=== PATIENT | male | born 1990 | race Caucasian/White ===

== ENCOUNTER 2016-07-08 19:26 | Emergency (ER) | payer SELFPAY ==
[~2016-07-08] VITALS: Ht 175.3 cm; Wt 72.5 kg
[~2016-07-08 19:26] MED LIST: CIPR500T4 PO; IBUP-232 PO
[2016-07-08 19:27] VITALS: BP 126/69; PULSE 99; RESP 18; TEMP 98.2; O2SAT 100
[2016-07-08] MEDS ORDERED: LIDOCAINE HCL 1% PF 30 ML VIAL XX ONE (21:00)
[2016-07-08] MEDS ORDERED: metroNIDAZOLE 500 MG TAB PO ONE (21:00)
[2016-07-08] MEDS ORDERED: AZITHROMYCIN PWD FOR SUSP 1 GM PACKET PO ONE (21:00)
--- NOTE | 2016-07-08 21:06 | PD ---
HPI Chief Complaint: Medical Clearance Time Seen by Provider: 21:01 Travel History International Travel<30 days: No Contact w/Intl Traveler<30days: No Traveled to known affect area: No History of Present Illness HPI Patient comes in complaining of exposure to chlamydia. Patient states his ex- girlfriend told him today that she tested positive for chlamydia and they were last together approximately a week ago. Patient states he had a little bit discharge morning when woke up, but denies any other symptoms or discharge since. Denies any dysuria, testicular pain, abdominal pain, fevers, nausea, or vomiting. [facility] Past Medical History ADD: Yes (as a child) Diminished Hearing: No Neurologic: Yes (head injury in 1998) Immunizations Current: Yes Past Surgical History Cholecystectomy: Yes Social History Alcohol Use: Yes (4-5 x week beer) Tobacco Use: No Substance Use: Yes ( occ. 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 SKIN: Warm and dry. HEAD: Atraumatic. Normocephalic. EYES: Pupils equal and round. EOMI. No scleral icterus. No injection or drainage. ENT: No nasal bleeding or discharge. Mucous membranes pink and moist. NECK: Trachea midline. Supple. No nuclear rigidity. RESPIRATORY: No accessory muscle use. No respiratory distress. GASTROINTESTINAL: Abdomen soft, non-tender, nondistended. Hepatic and splenic margins not palpable. No pulsatile mass. MUSCULOSKELETAL: No obvious deformities. No clubbing. No cyanosis. No edema. Full range of motion. NEUROLOGICAL: Awake and alert. No obvious cranial nerve deficits. Motor grossly within normal limits. Normal speech. PSYCHIATRIC: Appropriate mood and affect; insight and judgment normal. Data Data Last Documented VS Vital Signs Date Time Temp Pulse Resp B/P Pulse Ox O2 Delivery O2 Flow Rate FiO2 07/08/16 19:27 98.2 99 18 126/69 100 Orders Gc And Chlamydia Pcr (07/08/16 19:46) Ceftriaxone Inj (Rocephin Inj) (07/08/16 21:00) Lidocaine Pf 1% Inj (Xylocaine-Mpf 1% In (07/08/16 21:00) Azithromycin Powd Pack (Zithromax Powd P (07/08/16 21:00) Metronidazole (Flagyl) (07/08/16 21:00) MDM Medical Decision Making Medical Screen Exam Complete: Yes Emergency Medical Condition: No Differential Diagnosis Gonorrhea, chlamydia, Trichomonas, other Narrative Course Patient in no obvious distress upon re-evaluation. Any questions/concerns in reference to patient diagnosis/condition discussed and clarified prior to patient's discharge. Reinforced sheer importance of close follow up with patient 's primary physician or primary care clinic and/or health Department. Instructed patient to return to ED immediately, if symptoms return/worsen. Pt showed understanding of above instructions. Further instructions and recommendations were detailed in discharge paperwork. Pt ambulated without difficulty out of ED at discharge. Diagnosis Primary Impression: STD exposure Referrals: Primary Care Physician [facility] Dept. Patient Instructions: General Instructions, Sexually Transmitted Diseases (ED) Additional Instructions: Follow-up with your primary care physician and/or health Department for additional STD testing. Notify all sexual partners have them tested and treated. Do not have intercourse until all sexual partners tested and treated. Practice safe sex to prevent further STDs and/or unwanted pregnancies. If you would like a copy of your gonorrhea and chlamydia results bring a photo ID to medical records in 24-48 hours to get a copy. Return to the emergency department if symptoms get worse. Scripts No Active Prescriptions or Reported Meds Disposition: 01 DISCHARGE HOME Condition: Stable Nicolas Brown Jul 08, 2016 21:06
[2016-07-08 22:32] LABS: CHLAMYDIA PCR NOT DETECTED (NOT DETECT); NEISSERIA PCR NOT DETECTED (NOT DETECT)
== END 2016-07-08 22:16 | disposition home or self-care (01) ==
LOC: NEPB 19:26
DX: Z20.2 Contact with and (suspected) exposure to infections with a predominantly sexual mode of transmission (principal); Z86.69 Personal history of other diseases of the nervous system and sense organs
CPT/HCPCS: 87491; 87591; 96372; 99283; J0696